=== PATIENT | male | born 1990 | race Hispanic/Latino ===

== ENCOUNTER 2017-08-15 17:33 | Inpatient (IN) | payer MEDICAID, OTHER ==
[2017-08-15 18:46] LABS: BASO % 0.7 % (0.0-2.0); EOS % 0.3 % (0.0-4.0); HEMOGLOBIN 12.4 g/dL (12.0-18.0); LYMPH # 1.7 K/uL (1.0-4.3); LYMPH % 31.2 % (20.0-40.0); MEAN CELL VOLUME 88.1 fL (80.0-94.0); MEAN CORPUSCULAR HEMOGLOBIN 29.7 pg (27.0-31.0); MEAN CORPUSCULAR HGB CONC 33.7 g/dL (33.0-37.0); MEAN PLATELET VOLUME 7.8 fL (7.2-11.7); MONO # 0.5 K/uL (0.0-0.8); MONO % 8.9 % (0.0-10.0); NEUT # 3.2 K/uL (1.8-7.0); NEUT % 58.9 % (50.0-75.0); NRBC % 0.1 % (0.0-2.0); RBC 4.18 Mil/uL (4.40-5.90); RED CELL DISTRIBUTION WIDTH 13.7 % (11.5-14.5); WHITE BLOOD COUNT 5.4 K/uL (4.8-10.8)
[2017-08-15 19:03] LABS: ALB/GLOB RATIO 1.2 (1.0-2.1); ALBUMIN 4.5 g/dL (3.5-5.0); ALT/SGPT 31 U/L (21-72); AST/SGOT 23 U/L (17-59); BLOOD UREA NITROGEN 14 mg/dL (9-20); CALCIUM 8.7 mg/dl (8.6-10.4); GFR AFRICAN-AMERICAN > 60; GFR NON-AFRICAN AMERICAN > 60
[2017-08-15 19:35] LABS: URINE BACTERIA OCC (<OCC); URINE BILIRUBIN NEGATIVE (NEGATIVE); URINE BLOOD NEGATIVE (NEGATIVE); URINE CLARITY Hazy (Clear); URINE COLOR Amber (YELLOW); URINE GLUCOSE (UA) NORMAL (Normal); URINE LEUKOCYTE ESTERASE NEG Leu/uL (Negative); URINE PROTEIN 2+ mg/dL (NEGATIVE)
[2017-08-15 19:42] LABS: BARBITURATES, UR NEGATIVE (NEGATIVE); OPIATES, UR NEGATIVE (NEGATIVE); PHENCYCLIDINE, UR NEGATIVE (NEGATIVE)
[2017-08-15 19:43] LABS: BENZODIAZEPINES, UR POSITIVE (NEGATIVE)
--- NOTE | 2017-08-15 20:28 | C.PDOC ---
History Of Present Illness 26 y/o male presents to the ED requesting detox from benzos and subaxone. Patient offers no physical complaints. No nausea, vomiting, shakes, or diarrhea. Denies any homicidal or suicidal ideation. Patient was pre-screened for detox. Time Seen by Provider: 08/15/17 18:06 Chief Complaint (Nursing): Substance Abuse History Per: Patient History/Exam Limitations: no limitations Onset/Duration Of Symptoms: Days Past Medical History Reviewed: Historical Data, Nursing Documentation, Vital Signs Vital Signs: Last Vital Signs Temp 98.6 F 08/15/17 17:40 Pulse 125 H 08/15/17 17:40 Resp 20 08/15/17 17:40 BP 130/80 08/15/17 17:40 Pulse Ox 100 08/15/17 20:28 - Medical History PMH: Anxiety, Back Problems, Bipolar Disorder, Post Traumatic Stress Disorder, Schizophrenia Denies: Diabetes, Hepatitis, HIV, HTN, Seizures, Sexually Transmitted Disease Family History: States: No Known Family Hx - Social History Hx Alcohol Use: No Hx Substance Use: Yes - Immunization History Hx Tetanus Toxoid Vaccination: No Hx Influenza Vaccination: No Hx Pneumococcal Vaccination: No Review Of Systems Except As Marked, All Systems Reviewed And Found Negative. Psych: Positive for: Other (Substance abuse) Physical Exam - Physical Exam Appears: Non-toxic, No Acute Distress Skin: Normal Color, Warm, Dry Head: Atraumatic, Normacephalic Eye(s): bilateral: Normal Inspection, PERRL, EOMI Nose: Normal Neck: Normal ROM, Supple Chest: Symmetrical Cardiovascular: Rhythm Regular Respiratory: Normal Breath Sounds, No Accessory Muscle Use Gastrointestinal/Abdominal: Soft, No Tenderness, No Distention Extremity: Bilateral: Atraumatic, Normal ROM Neurological/Psych: Oriented x3, Normal Speech ED Course And Treatment - Laboratory Results Result Diagrams: 08/15/17 18:42 08/15/17 18:42 O2 Sat by Pulse Oximetry: 100 (RA) Pulse Ox Interpretation: Normal Medical Decision Making Medical Decision Making: Impression: Benzo abuse Time: 18:06 Initial Plan: * Urine drug screen * Alcohol serum * CMP * CBC * Urine preg * Urinalysis 20:[address] Bianchi service for detox. Disposition Discussed With : Pauline Hoffman Counseled Patient/Family Regarding: Studies Performed, Diagnosis - Disposition Disposition: HOSPITALIZED Disposition Time: 20:27 Condition: FAIR Forms: [facility] (Welsh) - POA Present On Arrival: None - Clinical Impression Clinical Impression: Drug abuse - Scribe Statement The provider has reviewed the documentation as recorded by the Jonoibfelipe Keys Provider Attestation: All medical record entries made by the Jonoibe were at my direction and personally dictated by me. I have reviewed the chart and agree that the record accurately reflects my personal performance of the history, physical exam, medical decision making, and the department course for this patient. I have also personally directed, reviewed, and agree with the discharge instructions and disposition.
[2017-08-15] MEDS ORDERED: Buprenorphine Hydrochloride 8 mg SL STA (22:48)
[2017-08-16] MEDS ORDERED: Buprenorphine Hydrochloride 8 mg SL ONE (09:00)
[2017-08-16] MEDS: Multiple Vitamins Tab PO SCH (09:17)
[2017-08-16] MEDS: Buprenorphine Hydrochloride 8 mg SL SCH ×2 (09:17→18:22)
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
[2017-08-16] MEDS ORDERED: Buprenorphine Hydrochloride 2 mg SL ONE ×2 (12:00→14:00)
--- NOTE | 2017-08-17 08:24 | PCM.BM ---
<Kaela Clark - Last Filed: 08/17/17 08:23> Treatment Plan Problems - Problems identified on initial assessmt potential withdrawals for benzo Date Initiated: 08/15/17 Assessment reference: NA Status: Active Treatment assets and liabiliti Patient Assests: cooperative, ADL independent, negotiates basic needs Patient Liabilities: substance abuse - Milieu Protocol Maintain good personal hygiene: daily Encourage regular showers, daily Remind patient to perform daily oral care, daily Assist patient to perform ADL's Maintain personal safety: every shift Educate patient to report safety concerns to staff, every shift Monitor environment for contraband/sharps Medication safety: Monitor for expected outcome, potential side effects: every shift, Assess barriers to learning: every shift, Assess readiness for medication education: every shift Milieu Narrative: Subutex detox Librium 50mg q6h Keppra 250mg bid Remeron 30mg hs As needed medications All risks, benefits and alternatives of the meds discussed, and the pt agreed and understood. Attend groups and activities Supportive therapy and psychoeducation [place] for abstinence CBT for relapse prevention Encourage MAT Refer to rehab or IOP, and self-help groups 34 min Discharge/Continuing Care - Treatment Team Participation Patient/Family/SO Statement: Subutex detox Librium 50mg q6h Keppra 250mg bid Remeron 30mg hs As needed medications All risks, benefits and alternatives of the meds discussed, and the pt agreed and understood. Attend groups and activities Supportive therapy and psychoeducation [place] for abstinence CBT for relapse prevention Encourage MAT Refer to rehab or IOP, and self-help groups 34 min <Leandro Gr - Last Filed: 08/19/17 00:28> - Diagnosis (1) Sedative, hypnotic or anxiolytic use disorder, severe, dependence Status: Acute Interventions: 08/19/17 00:31 * Assess 7x/week regarding severity of withdrawal * Educate regarding risks, benefits, side effects and alternatives of medications * Use Motivational Interviewing for abstinence * Use CBT for relapse prevention * Medication management for withdrawal symptoms * Encourage medication assisted treatment * <Lamar Perez - Last Filed: 08/20/17 09:17> Family Contact Family involvement: Family/SO is involved Family contact: Patient agrees to contact, Telephone contact initiated by staff Family contact name: Mom Family contacted how many times per week?: 1 - Goals for Treatment Patient goals for treatment: Complete detox and apply for co-occurring rehab. Discharge/Continuing Care - Education Needs Education Needs: Family Medication, Family Diagnosis/Disease Process, Family Coping Skills, Family Anger Management skills, Family Placement options, Family Community resources, Patient Medication, Patient Diagnosis/Disease Process, Patient Coping Skills, Patient Anger Management skills, Patient Placement options, Patient Community resources - Discharge Discharge Criteria: No longer exhibiting s/s of withdrawal, Reduction of target symptoms Discharge to:: Substance Abuse Rehab - Treatment Team Participation Discussed with Family/SO: Yes Was Patient/Family/SO present at Treatment Team Meeting: Yes
[2017-08-17] MEDS: Multiple Vitamins Tab PO SCH (09:32)
[2017-08-17] MEDS: Buprenorphine Hydrochloride 8 mg SL SCH ×2 (09:34→20:08)
[2017-08-17] MEDS ORDERED: Buprenorphine Hydrochloride 2 mg SL ONE (14:00)
--- NOTE | 2017-08-17 21:41 | PCM.PYCHPN ---
Psychiatric Progress Note - Psychiatric Progress Note Patient seen today, length of contact: 16 min Patient Chief Complaint: "Not sleeping" Problems Identified/Issues Discussed: The pt is seen, chart reviewed, case discussed with staff. Support given, CBT and [place] used briefly No new symptoms reported, improving slowly and needs more time No SEs from medications, risks discussed. After care discussed - wants rehab He shakes less now Medication Change: Yes (detox changes daily) Medical Record Reviewed: Yes Mental Status Examination - Cognitive Function Orientation: Person, Place, Situation, Time Memory: Intact Attention: WNL Concentration: WNL Association: WNL Fund of Knowledge: WNL - Mood Mood: Anxious - Affect Affect: Constricted - Speech Speech: Appropriate - Formal Thought Process Formal Thought Process: No Impairment - Suicidal Ideation Suicidal Ideation: No - Homicidal Ideation Homicidal Ideation: No Goal/Treatment Plan - Goal/Treatment Plan Need for Continued Stay: Discharge may exacerbated symptoms, Severe functional impairment Progress Toward Problem(s) and Goals/Treatment Plan: Subutex maintenace at 16 mg/d Librium 50mg q6h Keppra 250mg bid Remeron 30mg hs As needed medications All risks, benefits and alternatives of the meds discussed, and the pt agreed and understood. Attend groups and activities Supportive therapy and psychoeducation [place] for abstinence CBT for relapse prevention Encourage MAT Refer to rehab or IOP, and self-help groups
[2017-08-18] MEDS: Buprenorphine Hydrochloride 8 mg SL SCH (09:30)
[2017-08-18] MEDS: Multiple Vitamins Tab PO SCH (09:30)
[2017-08-18] MEDS ORDERED: Buprenorphine Hydrochloride 2 mg SL ONE (14:00)
[2017-08-18] MEDS: Buprenorphine Hydrochloride 2 mg SL SCH (21:19)
--- NOTE | 2017-08-19 00:36 | PCM.PYCHPN ---
Psychiatric Progress Note - Psychiatric Progress Note Patient seen today, length of contact: 16 min Patient Chief Complaint: "Very anxious, still not sleeping well" Problems Identified/Issues Discussed: The pt is seen, chart reviewed, case discussed with staff. The pt is compliant with medications and reports no side-effects. Symptoms are improving but needs more time to stabilize. After care discussed, support and psychoeducation given. Refusing almost every psych med Medication Change: Yes (detox changes daily) Medical Record Reviewed: Yes Mental Status Examination - Cognitive Function Orientation: Person, Place, Situation, Time Memory: Intact Attention: WNL Concentration: WNL Association: WNL Fund of Knowledge: WNL - Mood Mood: Anxious - Affect Affect: Constricted - Speech Speech: Appropriate - Formal Thought Process Formal Thought Process: No Impairment - Suicidal Ideation Suicidal Ideation: No - Homicidal Ideation Homicidal Ideation: No Goal/Treatment Plan - Goal/Treatment Plan Need for Continued Stay: Discharge may exacerbated symptoms, Severe functional impairment Progress Toward Problem(s) and Goals/Treatment Plan: Subutex maintenace at 16 mg/d Librium 50mg q6h Keppra 250mg bid Remeron 30mg hs Add periactin for insomnia As needed medications All risks, benefits and alternatives of the meds discussed, and the pt agreed and understood. Attend groups and activities Supportive therapy and psychoeducation [place] for abstinence CBT for relapse prevention Encourage MAT Refer to rehab or IOP, and self-help groups
[2017-08-19] MEDS: Multiple Vitamins Tab PO SCH (09:35)
[2017-08-19] MEDS: Buprenorphine Hydrochloride 8 mg SL SCH (09:36)
[2017-08-19] MEDS ORDERED: Buprenorphine Hydrochloride 2 mg SL ONE ×2 (13:45→14:00)
--- NOTE | 2017-08-19 13:56 | PCM.PYCHPN ---
Psychiatric Progress Note - Psychiatric Progress Note Patient seen today, length of contact: 17 min Patient Chief Complaint: "Still not able to sleep" Problems Identified/Issues Discussed: The pt is seen, chart reviewed, case discussed with staff. He frequently wakes up in the middle of the night and sleeps very little The pt is compliant with medications and reports no side-effects. Symptoms are improving but needs more time to stabilize. After care discussed, support and psychoeducation given. Refusing almost every psych med but agreed to increase current meds Medication Change: Yes (detox changes daily) Medical Record Reviewed: Yes Mental Status Examination - Cognitive Function Orientation: Person, Place, Situation, Time Memory: Intact Attention: WNL Concentration: WNL Association: WNL Fund of Knowledge: WNL - Mood Mood: Anxious - Affect Affect: Constricted - Speech Speech: Appropriate - Formal Thought Process Formal Thought Process: No Impairment - Suicidal Ideation Suicidal Ideation: No - Homicidal Ideation Homicidal Ideation: No Goal/Treatment Plan - Goal/Treatment Plan Need for Continued Stay: Discharge may exacerbated symptoms, Severe functional impairment Progress Toward Problem(s) and Goals/Treatment Plan: Subutex maintenace at 16 mg/d Librium 50mg detox Keppra 250mg bid Remeron 30mg hs Add periactin for insomnia As needed medications All risks, benefits and alternatives of the meds discussed, and the pt agreed and understood. Attend groups and activities Supportive therapy and psychoeducation [place] for abstinence CBT for relapse prevention Encourage MAT Refer to rehab or IOP, and self-help groups
[2017-08-19] MEDS: Buprenorphine Hydrochloride 2 mg SL SCH (21:49)
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
[2017-08-20] MEDS: Multiple Vitamins Tab PO SCH (09:42)
[2017-08-20] MEDS: Buprenorphine Hydrochloride 8 mg SL SCH (09:42)
--- NOTE | 2017-08-20 10:08 | PCM.PYCHPN ---
Psychiatric Progress Note - Psychiatric Progress Note Patient seen today, length of contact: 17 min Patient Chief Complaint: "I'm still anxious" Problems Identified/Issues Discussed: The pt is seen, chart reviewed, case discussed with staff. Support given, CBT and ID used briefly No new symptoms reported, improving slowly and needs more time No SEs from medications, risks discussed. After care discussed Medication Change: Yes (detox changes daily) Medical Record Reviewed: Yes Mental Status Examination - Cognitive Function Orientation: Person, Place, Situation, Time Memory: Intact Attention: WNL Concentration: WNL Association: WNL Fund of Knowledge: WNL - Mood Mood: Anxious - Affect Affect: Constricted - Speech Speech: Appropriate - Formal Thought Process Formal Thought Process: No Impairment - Suicidal Ideation Suicidal Ideation: No - Homicidal Ideation Homicidal Ideation: No Goal/Treatment Plan - Goal/Treatment Plan Need for Continued Stay: Discharge may exacerbated symptoms, Severe functional impairment Progress Toward Problem(s) and Goals/Treatment Plan: Opioid withdrawal Opioid use d/o - severe Benzodiazepine withdrawal Benzodiazepine use d/o severe Seizure Disorder PTSD disorder Anxiety disorder Subutex detox Librium 50mg q6h Keppra 250mg bid Remeron 30mg hs As needed medications All risks, benefits and alternatives of the meds discussed, and the pt agreed and understood. Attend groups and activities Supportive therapy and psychoeducation [place] for abstinence CBT for relapse prevention Encourage MAT Refer to rehab or IOP, and self-help groups - Smoking Cessation Smoking Cessation Initiated: No
[2017-08-20] MEDS ORDERED: Buprenorphine Hydrochloride 2 mg SL ONE (14:00)
--- NOTE | 2017-08-20 15:38 | RAD ---
HISTORY: COMPARISON: No prior. TECHNIQUE: Chest PA and lateral FINDINGS: LINES AND TUBES: None. LUNG AND PLEURA: The lungs are hyperinflated and there is peribronchial cuffing with streaky opacities in the lungs. There is a calcified granuloma in the right apex. No focal consolidation HEART AND MEDIASTINUM: The heart is not enlarged. The hilar and mediastinal contours are within normal limits. SKELETAL STRUCTURES: The bony structures are within normal limits for the patient's age. VISUALIZED UPPER ABDOMEN: Normal. OTHER FINDINGS: None. IMPRESSION: No active pulmonary disease. COPD.
[2017-08-20] MEDS: Buprenorphine Hydrochloride 2 mg SL SCH (21:39)
[2017-08-21] MEDS: Buprenorphine Hydrochloride 8 mg SL SCH (09:42)
[2017-08-21] MEDS: Multiple Vitamins Tab PO SCH (09:42)
--- NOTE | 2017-08-21 12:47 | PCM.PYCHPN ---
Psychiatric Progress Note - Psychiatric Progress Note Patient seen today, length of contact: 17 min Patient Chief Complaint: "I'm feeling anxious" Problems Identified/Issues Discussed: The pt is seen, chart reviewed, case discussed with staff. The pt is compliant with medications and reports no side-effects. Symptoms are improving but needs more time to stabilize. After care discussed, support and psychoeducation given. He is compliant with his meds and denied side effects. DSM 5 Symptoms Update: Sedative hypnotic dependence, withdrawal symptoms. Opioid dependence, on maintenance therapy Bipolar disorder current episode depressed, moderate Medication Change: Yes (detox changes daily) Medical Record Reviewed: Yes Mental Status Examination - Cognitive Function Orientation: Person, Place, Situation, Time Memory: Intact Attention: WNL Concentration: WNL Association: [facility] Fund of Knowledge: [facility] Decription of patient's judgement and insights: good/good Addtional comments: Pt appeared anxious, shaking his legs continuously. He is cooperative. - Mood Mood: Anxious - Affect Affect: Constricted - Speech Speech: Appropriate - Formal Thought Process Formal Thought Process: No Impairment Psychotic Thoughts and Behaviors: denied - Suicidal Ideation Suicidal Ideation: No Plan: denied - Homicidal Ideation Homicidal Ideation: No Plan: denied Goal/Treatment Plan - Goal/Treatment Plan Need for Continued Stay: Discharge may exacerbated symptoms, Severe functional impairment Progress Toward Problem(s) and Goals/Treatment Plan: Continue current treatment and management. Psychoeducation Supportive therapy provided [place] in milieu Medication benefits and side effects discussed with the pt and he verbalized understanding and agree with the treatment plan Estimated Date of D/C: 08/22/17 - Smoking Cessation Smoking Cessation Initiated: Yes
[2017-08-21] MEDS ORDERED: Buprenorphine Hydrochloride 2 mg SL ONE ×2 (15:19→16:03)
[2017-08-21] MEDS: Buprenorphine Hydrochloride 2 mg SL SCH (21:20)
[2017-08-22] MEDS: Multiple Vitamins Tab PO SCH (09:12)
[2017-08-22] MEDS: Buprenorphine Hydrochloride 8 mg SL SCH (09:12)
[2017-08-22] MEDS ORDERED: Buprenorphine Hydrochloride 2 mg SL ONE (14:00)
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
[2017-08-22] MEDS: Buprenorphine Hydrochloride 2 mg SL SCH (21:08)
[2017-08-23] MEDS: Buprenorphine Hydrochloride 8 mg SL SCH (09:26)
[2017-08-23] MEDS: Multiple Vitamins Tab PO SCH (09:27)
[2017-08-23 09:43] VITALS: BP 147/82; PULSE 60; RESP 18; TEMP 97.6; O2SAT 99
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
== END 2017-08-23 09:45 | disposition home or self-care (01) | DRG 745 ==
LOC: C.ER 17:33 → C.7D 20:28
PROVIDERS: ADMIT Psychiatry & Neurology Psychiatry; ATTEND Psychiatry & Neurology Psychiatry
PROC: HZ2ZZZZ Detoxification Services for Substance Abuse Treatment (ICD-10-PCS; principal; 2017-08-15)
DX: F11.23 Opioid dependence with withdrawal (principal); F31.9 Bipolar disorder, unspecified; F12.90 Cannabis use, unspecified, uncomplicated; F13.239 Sedative, hypnotic or anxiolytic dependence with withdrawal, unspecified; F43.10 Post-traumatic stress disorder, unspecified; G40.909 Epilepsy, unspecified, not intractable, without status epilepticus; G47.00 Insomnia, unspecified